=== PATIENT | female | born 1960 | race Caucasian/White ===

== ENCOUNTER 2020-04-23 11:03 | Emergency (ER) | payer OTHER ==
[2020-04-23 11:13] VITALS: BP 185/101
--- NOTE | 2020-04-23 11:27 | ED Integumentary General ---
General Chief Complaint: Skin/Wound Problems Stated Complaint: RT LEG INFECTION, HEADACHE, NAUSEA Nursing Triage Note: Patient is here today for wound on R inner thigh that started 4 days ago. Was seen yesterday in [facility] clinic and started on doxycycline and mupiricin. Has hadd 3 doses. Woke up this morning with a headache, nausea and overall not feeling well. Daughter thinks redness on wound has increased since yesterday. Wound is draining and they're keeping it covered with a bandaid. History of Present Illness Date Seen by Provider: Apr 23, 2020 Time Seen by Provider: 11:22 Initial Comments 59-year-old female presents for recheck of a right leg abscess. Patient reports that the abscess started on her right inner thigh 4 days ago. Patient was seen at the [place] [facility] yesterday and started on Doxy and mupirocin. She has taken 3 doses of her Doxy. She reports that she woke up this morning had a little bit of a headache, nausea and just not feeling well. Patient reports the pain on the wound has gotten significantly better. That it started draining on its own yesterday. Patient reports that her daughter thinks it might be a little bit redder than yesterday but once again the pain has gotten significantly better. Patient does report that she occasionally gets headaches. However the nausea is new. No other systemic complaints. Allergies and Home Medications Allergies Coded Allergies: Penicillins (Verified Allergy, Unknown, rash , 04/23/20) Patient Home Medication List Home Medication List Reviewed: Yes Review of Systems Review of Systems Constitutional: No chills, No dizziness, No fever EENTM: no symptoms reported Respiratory: no symptoms reported Cardiovascular: no symptoms reported Gastrointestinal: No abdominal pain, No diarrhea; nausea; No vomiting Musculoskeletal: no symptoms reported Skin: see HPI Psychiatric/Neurological: No Symptoms Reported Endocrine: No Symptoms Reported Past Iodglmc-Brvhew-Evynbu Hx Past Med/Social Hx: Reviewed Nursing Past Med/Soc Hx Patient Social History Alcohol Use: Rarely Uses Recreational Drug Use: No Smoking Status: Never a Smoker 2nd Hand Smoke Exposure: No Recent Foreign Travel: No Contact w/Someone Who Travel: No Recent Infectious Disease Expo: No Recent Hopitalizations: No Seasonal Allergies Seasonal Allergies: Yes Past Medical History Surgeries: Yes (lithotripsy) Gallbladder, Hysterectomy, Orthopedic Respiratory: No Cardiac: Yes Hypertension Neurological: No Genitourinary: No Gastrointestinal: No Musculoskeletal: No Endocrine: No HEENT: No Cancer: No Psychosocial: No Integumentary: No Blood Disorders: No Adverse Reaction/Blood Tranf: No Physical Exam Vital Signs Vital Signs - First Documented 04/23/20 11:13 Temp 36.3 Pulse 85 Resp 16 B/P (MAP) 185/101 (129) Pulse Ox 98 Capillary Refill : Less Than 3 Seconds General Appearance: WD/WN, no apparent distress Cardiovascular: normal peripheral pulses, regular rate, rhythm Respiratory: chest non-tender, lungs clear, normal breath sounds Gastrointestinal: non tender, soft Extremities: normal range of motion Neurologic/Psychiatric: alert, normal mood/affect, oriented x 3 Skin: other (small 3 cm area of induration with a small 1 cm abscesses drained. Some mild surrounding cellulitis) Skin Problem Location: lower extremities (right inner thigh) Skin Problem Character: abscess Progress/Results/Core Measures Results/Orders Vital Signs/I&O 04/23/20 11:13 Temp 36.3 Pulse 85 Resp 16 B/P (MAP) 185/101 (129) Pulse Ox 98 Blood Pressure Mean: 129 Progress Progress Note : Time: 11:32 Progress Note Patient's wound with appropriate healing based on 3 doses of doxycycline, abscesses started draining appropriately. There is still some underlying induration and discussed with her the need to put a warm compress on it. I suspect her symptoms are likely a side effect of the doxycycline or seasonal allergies. I will provide her with some Zofran. This time she is very low risk to actually have any sepsis or systemic reaction due to the small cutaneous abscess. Departure Impression Primary Impression: Cutaneous abscess of groin Additional Impression: Nausea Disposition: 01 HOME, SELF-CARE Condition: Stable Departure-Patient Inst. Referrals: AGUSTO VERA MD (PCP/Family) Primary Care Physician Patient Instructions: Abscess Incision and Drainage, Cellulitis (Skin Infection), Adult (DC) Add. Discharge Instructions: Follow-up with your primary care provider next week if symptoms havey worsened orstarted to return after approximately 5 days of antibiotic Warm compress to the affected area All discharge instructions reviewed with patient and/or family. Voiced understanding. Scripts Ondansetron (Ondansetron Odt) 4 Mg Tab.rapdis 4 MG PO Q6H PRN for NAUSEA/VOMITING, #20 TAB 0 Refills Prov: ÓSCAR BASHIR DO 04/23/20 ÓSCAR BASHIR DO Apr 23, 2020 11:27
[2020-04-23] MEDS ORDERED: ONDA4TAB11 PO (11:35)
== END 2020-04-23 11:45 | disposition home or self-care (01) ==
LOC: ER FS 11:05
DX: L02.214 Cutaneous abscess of groin (principal); R11.0 Nausea; Z88.0 Allergy status to penicillin
CPT/HCPCS: 99282